=== PATIENT | male | born 1950 | race Caucasian/White ===

== ENCOUNTER 2020-11-09 10:46 | Outpatient (CLI) | payer MEDICARE ==
[2020-11-09 12:27] LABS: Hemoglobin 14.5 g/dL (13.5-17.5); Mean Corpuscular Hemoglobin 32.3 pg (27.0-33.0); Mean Platelet Volume 10.1 fl (7.4-10.4); Platelet Count 281 10x3/uL (150-450); RBC Distribution Width 13.5 % (11.5-14.5); Red Blood Cell (RBC) Count 4.49 10x6/uL (4.32-5.72); White Blood Cell (WBC) Count 5.9 10x3/uL (3.5-10.5)
[2020-11-09 12:51] LABS: PTT 26.5 sec (22.0-33.0)
[2020-11-09 12:53] LABS: Anion Gap 13 mmol/L (10-20); BUN (Urea Nitrogen) 15 mg/dL (8.4-25.7); Calc. Creatinine Clearance 0 mL/min (70-130); Carbon Dioxide 25 mmol/L (23-31); Chloride 105 mmol/L (98-107); Glucose 95 mg/dL (80-115); Potassium 4.6 mmol/L (3.5-5.1); Sodium 138 mmol/L (136-145)
[2020-11-09 19:17] LABS: SARS-CoV-2 PCR by NAA Not Detected (NotDetected)
== END 2020-11-09 10:47 | disposition home or self-care (01) ==
LOC: LABBT 10:46
PROVIDERS: ATTEND Surgery
DX: Z01.818 Encounter for other preprocedural examination (principal); M48.062 Spinal stenosis, lumbar region with neurogenic claudication; M54.16 Radiculopathy, lumbar region; Z20.822 Contact with and (suspected) exposure to COVID-19
CPT/HCPCS: 80048; 85027; 85610; 85730; 93005; U0003; U0005; 93010

== ENCOUNTER 2020-11-12 09:30 | Inpatient (IN) | payer MEDICARE ==
[2020-11-12] MEDS ORDERED: ceFAZolin 2 GM/DEX 5% 100 ML BAG ONE (10:37)
[2020-11-12] MEDS ORDERED: Thrombin 5000 UNITS/5 ML VIAL ONE (12:02)
[2020-11-12] MEDS ORDERED: Fentanyl 100 MCG/2 ML VIAL ONE ×3 (12:10→17:25)
[2020-11-12] MEDS ORDERED: Fentanyl 250 MCG/5 ML VIAL ONE (12:36)
[2020-11-12] MEDS ORDERED: Rocuronium Bromide 10 MG/ML (10ML VIAL) ONE (12:59)
[2020-11-12] MEDS ORDERED: PROPOFOL 200 MG/20 ML VIAL ONE (12:59)
[2020-11-12] MEDS ORDERED: Lidocaine 1% PF 5 ML VIAL ONE (12:59)
[2020-11-12] MEDS ORDERED: Dexamethasone 20 MG/5 ML VIAL ONE (12:59)
[2020-11-12] MEDS ORDERED: ePHEDrine 50 MG/ML VIAL ONE (12:59)
[2020-11-12] MEDS ORDERED: Ondansetron PF 4 MG/2 ML Vial ONE (12:59)
[2020-11-12] MEDS ORDERED: Acetaminophen/Codeine 30-300mg Tablet PO PRN (13:21)
[2020-11-12] MEDS ORDERED: Acetaminophen 325 MG TAB PO PRN (13:21)
[2020-11-12] MEDS ORDERED: traMADol HCl 50 MG TAB PO PRN (13:21)
[2020-11-12] MEDS ORDERED: HYDROcodone/Acetaminophen 10/325 mg Tablet PO PRN ×2 (13:24→21:45)
[2020-11-12] MEDS ORDERED: Ondansetron HCl/PF 4 MG/2 ML Vial IVP PRN (14:28)
[2020-11-12] MEDS ORDERED: HYDROmorphone 2 MG/ML VIAL SLOW IVP PRN (14:28)
[2020-11-12] MEDS ORDERED: Promethazine HCl 25 MG/ML VIAL IVPB PRN (14:28)
[2020-11-12] MEDS ORDERED: Morphine Sulfate 2 MG/ML SYRINGE SLOW IVP PRN (14:28)
[2020-11-12] MEDS ORDERED: Promethazine HCl 25 MG/ML VIAL IM PRN (14:28)
[2020-11-12] MEDS ORDERED: PACU-Morphine 4MG/ML VIAL SLOW IVP PRN (14:28)
[2020-11-12] MEDS ORDERED: SUGAMMADEX SODIUM 200 MG/2 ML VIAL ONE (15:41)
[2020-11-12] MEDS ORDERED: HYDROmorphone 2 MG/ML VIAL ONE (16:42)
[2020-11-12] MEDS: Methocarbamol 500 MG TAB PO SCH ×2 (18:35→21:54)
[2020-11-12] MEDS ORDERED: CEFAZOLIN 2 GM in Premix Bag 1 BAG IVPB SCH (19:00)
[2020-11-12] MEDS: Morphine 2 MG/ML VIAL SLOW IVP PRN ×2 (20:04→23:21)
[2020-11-12] MEDS: Citalopram 20 MG TAB PO SCH (20:08)
[2020-11-12] MEDS: ceFAZolin Sodium/D5W 2 GM in Premix Bag 1 BAG IVPB SCH (20:08)
[2020-11-12] MEDS: Gabapentin 300 MG CAP PO SCH (20:09)
[2020-11-12] MEDS ORDERED: traZODone HCl 50 MG TAB PO SCH (21:45)
[2020-11-12] MEDS: Sodium Chloride 0.9% 1,000 ML IV SCH (22:05)
[2020-11-12 23:34] VITALS: BMI 32.0
[2020-11-13] MEDS: Methocarbamol 500 MG TAB PO SCH ×6 (01:32→19:55)
[2020-11-13] MEDS: Sodium Chloride 0.9% 1,000 ML IV SCH ×2 (03:11→15:11)
[2020-11-13] MEDS: ceFAZolin Sodium/D5W 2 GM in Premix Bag 1 BAG IVPB SCH (06:05)
[2020-11-13] MEDS: HYDROcodone/Acetaminophen 10/325 mg Tablet PO PRN ×3 (07:27→20:32)
[2020-11-13] MEDS ORDERED: traZODone HCl 50 MG TAB PO SCH ×2 (09:00→21:00)
[2020-11-13] MEDS ORDERED: Ketorolac Tromethamine 30 MG/ML VIAL IVP SCH (09:45)
[2020-11-13] MEDS: Lisinopril 20 MG TAB PO SCH (10:11)
[2020-11-13] MEDS: Amlodipine 5 MG TAB PO SCH (10:11)
[2020-11-13] MEDS: Gabapentin 300 MG CAP PO SCH (19:52)
[2020-11-13] MEDS: Citalopram 20 MG TAB PO SCH (19:52)
[2020-11-14] MEDS: Methocarbamol 500 MG TAB PO SCH ×3 (00:27→10:06)
[2020-11-14] MEDS: Sodium Chloride 0.9% 1,000 ML IV SCH (05:09)
[2020-11-14 07:38] VITALS: BP 110/67; TEMP 98.1
[2020-11-14] MEDS: HYDROcodone/Acetaminophen 10/325 mg Tablet PO PRN (08:01)
[2020-11-14] MEDS: Lisinopril 20 MG TAB PO SCH (08:07)
[2020-11-14] MEDS: Amlodipine 5 MG TAB PO SCH (08:07)
== END 2020-11-14 10:15 | disposition home or self-care (01) | DRG 517 ==
LOC: SDC 09:30 → SURG A 13:28 → OBSVTOIN 11-13 10:24
PROVIDERS: ADMIT Surgery; ATTEND Surgery
PROC: 01NB0ZZ Release Lumbar Nerve, Open Approach (ICD-10-PCS; principal; 2020-11-12)
PROC: 01NR0ZZ Release Sacral Nerve, Open Approach (ICD-10-PCS; 2020-11-12)
DX: M48.062 Spinal stenosis, lumbar region with neurogenic claudication (principal); M54.16 Radiculopathy, lumbar region; Z20.822 Contact with and (suspected) exposure to COVID-19; M48.07 Spinal stenosis, lumbosacral region; I10 Essential (primary) hypertension; G89.4 Chronic pain syndrome; M19.90 Unspecified osteoarthritis, unspecified site; F41.9 Anxiety disorder, unspecified; Z79.899 Other long term (current) drug therapy
CPT/HCPCS: 36415; 76000; 86850; 86900; 86901; 96374; 96375; 96376; G0378; J1100; J1170; J1885; J2270; J2405; J2704; J3010; J3370; J3490